=== PATIENT | male | born 1965 | race Two or more races ===

== ENCOUNTER 2024-07-03 07:03 | Emergency (ER) | payer OTHER ==
[~2024-07-03] VITALS: Ht 172.7 cm; Wt 83.9 kg
[2024-07-03] MEDS ORDERED: LOSARTAN-HCTZ1 EACH PO (07:45)
[2024-07-03] MEDS ORDERED: ADULT LOW DOSE81 M1 (07:46)
[2024-07-03] MEDS ORDERED: PANTOPRAZOLE SO40 MG (07:46)
[2024-07-03] MEDS ORDERED: ATORVASTATIN CA40 MG (07:46)
[2024-07-03] MEDS ORDERED: METOPROLOL SUCC25 MG PO (07:47)
== END 2024-07-03 10:05 | disposition home or self-care (01) ==
LOC: ER 07:05
DX: M54.32 Sciatica, left side (principal); Z88.8 Allergy status to other drugs, medicaments and biological substances